=== PATIENT | female | born 1960 | race Caucasian/White ===

== ENCOUNTER 2017-05-02 15:45 | Emergency (ER) | payer BC ==
[2017-05-02 16:31] VITALS: BP 129/69
--- NOTE | 2017-05-02 17:09 | ED ---
Respiratory - HPI Summary HPI Summary: 56 yr old female with cough, runny nose, fever, chills, myalgias, fatigue. Onset a couple of days. denies exposures to the flu. No other complaints. - History of Current Complaint Chief Complaint: UCRespiratory Stated Complaint: COUGH,HALEY,FEVER Time Seen by Provider: 05/02/17 16:49 Pain Intensity: 7 - Allergy/Home Medications Allergies/Adverse Reactions: Allergies Allergy/AdvReac Type Severity Reaction Status Date / Time cephalexin [From Keflex] Allergy Tachycardia Verified 05/02/17 16:31 erythromycin base Allergy Nausea Verified 05/02/17 16:31 Home Medications: Home Medications Cholecalciferol (Vitamin D3) [Vitamin D3] 1,000 unit PO 05/02/17 [History] Echinacea 380 mg PO 05/02/17 [History] Multivitamin [Multivitamins] 1 cap PO 05/02/17 [History] Vitamin B Complex [Super B-50 Complex] 1 each PO 05/02/17 [History] PMH/Surg Hx/FS Hx/Imm Hx - Surgical History Surgery Procedure, Year, and Place: c-sections X2. tubaligation, appy, t&a Infectious Disease History: Yes Infectious Disease History: Reports: Hx Hepatitis - hep a Denies: Traveled Outside the [place] in Last 30 Days - Family History Known Family History: Positive: None - Social History Occupation: Works From/At Home Lives: With Family Alcohol Use: Rare Substance Use Type: Reports: None Smoking Status (MU): Never Smoked Tobacco Review of Systems Positive: Fever, Chills Positive: Nasal Discharge Positive: Cough Positive: Myalgia All Other Systems Reviewed And Are Negative: Yes Physical Exam Triage Information Reviewed: Yes Vital Signs On Initial Exam: Initial Vitals Temp Pulse Resp BP Pulse Ox 101 F 88 18 129/69 97 05/02/17 16:25 05/02/17 16:25 05/02/17 16:25 05/02/17 16:25 05/02/17 16:25 Vital Signs Reviewed: Yes Appearance: Positive: Well-Appearing, No Pain Distress Skin: Positive: Warm, Skin Color Reflects Adequate Perfusion Head/Face: Positive: Normal Head/Face Inspection Eyes: Positive: EOMI Neck: Positive: Nontender Respiratory/Lung Sounds: Positive: Clear to Auscultation, Breath Sounds Present Cardiovascular: Positive: RRR. Negative: Murmur Abdomen Description: Positive: Nontender Musculoskeletal: Positive: Strength/ROM Intact Neurological: Positive: Sensory/Motor Intact, Alert, Oriented to Person Place, Time, CN Intact II-III Psychiatric: Positive: Normal - [place] Coma Scale Best Eye Response: 4 - Spontaneous Best Motor Response: 6 - Obeys Commands Best Verbal Response: 5 - Oriented Coma Scale Total: 15 Diagnostics - Vital Signs Vital Signs Temp Pulse Resp BP Pulse Ox 05/02/17 16:25 101 F 88 18 129/69 97 - Laboratory Lab Results: Lab Results 05/02/17 Range/Units 16:39 Influenza A (Rapid) Negative (Negative) Influenza B (Rapid) Negative (Negative) Lab Statement: Any lab studies that have been ordered have been reviewed, and results considered in the medical decision making process. Disposition - Course Course Of Treatment: 56 yr old female with URI symptoms. Plan DC home in stable condition. - Diagnoses Provider Diagnoses: Upper respiratory infection Discharge - Discharge Plan Condition: Good Disposition: HOME Patient Education Materials: Upper Respiratory Infection (ED) Referrals: Bernice Gorman MD [Primary Care Provider] - 2 Days
== END 2017-05-02 17:19 | disposition home or self-care (01) ==
LOC: UCCORT 15:45
DX: J06.9 Acute upper respiratory infection, unspecified (principal)
CPT/HCPCS: 87502; 99201; G0463